=== PATIENT | male | born 1990 | race Two or more races ===

== ENCOUNTER 2018-03-09 17:02 | Emergency (ER) | payer SELFPAY ==
[~2018-03-09] VITALS: Ht 177.8 cm; Wt 113.6 kg
[2018-03-09] MEDS ORDERED: ACETAMINOPHEN WITH CODEINE 300/30MG TABLET PO ONE (19:15)
[2018-03-09 19:38] VITALS: BP 125/73
== END 2018-03-09 20:25 | disposition home or self-care (01) ==
LOC: ER 17:02
DX: S80.862A Insect bite (nonvenomous), left lower leg, initial encounter (principal); S80.861A Insect bite (nonvenomous), right lower leg, initial encounter; F12.10 Cannabis abuse, uncomplicated; W57.XXXA Bitten or stung by nonvenomous insect and other nonvenomous arthropods, initial encounter; Y93.89 Activity, other specified; Y92.89 Other specified places as the place of occurrence of the external cause; Y99.8 Other external cause status; Z98.890 Other specified postprocedural states
CPT/HCPCS: 99283

== ENCOUNTER 2021-09-23 15:12 | Emergency (ER) | payer OTHER ==
[~2021-09-23] VITALS: Ht 193 cm; Wt 123.0 kg
[2021-09-23 15:41] VITALS: BP 148/94
== END 2021-09-23 17:35 | disposition home or self-care (01) ==
LOC: ER 15:56
DX: R20.2 Paresthesia of skin (principal); F12.10 Cannabis abuse, uncomplicated; Z98.890 Other specified postprocedural states
CPT/HCPCS: 99282

== ENCOUNTER 2023-06-23 20:00 | Emergency (ER) | payer OTHER ==
[~2023-06-23] VITALS: Ht 188 cm; Wt 135.6 kg
[2023-06-23 20:17] VITALS: O2SAT 97
[2023-06-23 20:18] VITALS: BP 163/87; PULSE 102; RESP 18; TEMP 98.7
== END 2023-06-23 22:08 | disposition left against medical advice (07) ==
LOC: ER 20:00
DX: R07.89 Other chest pain (principal); Z53.21 Procedure and treatment not carried out due to patient leaving prior to being seen by health care provider
CPT/HCPCS: 93005; 99281

== ENCOUNTER 2025-02-27 20:08 | Emergency (ER) | payer OTHER ==
[~2025-02-27] VITALS: Ht 193 cm; Wt 130.7 kg
[2025-02-27 20:56] VITALS: O2SAT 99
[2025-02-27] MEDS: KETOROLAC 30MG/ML VIAL IM ONE (22:18)
[2025-02-27] MEDS: LIDOCAINE 5% PATCH TOP SCH (22:18)
[2025-02-28 00:29] LABS: CLARITY URINE CLEAR (CLEAR); COLOR URINE YELLOW (YELLOW); GLUCOSE URINE NEGATIVE (NEGATIVE); KETONES URINE TRACE (NEGATIVE); LEUKOCYTE ESTERASE URINE NEGATIVE (NEGATIVE); NITRITE URINE NEGATIVE (NEGATIVE); OCCULT BLOOD URINE NEGATIVE (NEGATIVE); PH URINE 5.5 (4.5-8.0); PROTEIN URINE NEGATIVE (NEGATIVE); SPECIFIC GRAVITY URINE 1.022 (1.005-1.030); UROBILINOGEN URINE 1.0 E.U./dL (0.2-1.0)
[2025-02-28] MEDS ORDERED: NAPR-1176 MT (00:40)
[2025-02-28] MEDS ORDERED: LIDO-53 TP (00:40)
[2025-02-28 00:59] VITALS: BP 136/86; PULSE 79; RESP 18; TEMP 36.5; O2SAT 99
== END 2025-02-28 01:00 | disposition home or self-care (01) ==
LOC: ER 20:08
DX: M54.50 Low back pain, unspecified (principal)
CPT/HCPCS: 99283; 81003; 96372; J1885